=== PATIENT | male | born 2000 | race Two or more races ===

== ENCOUNTER 2020-02-29 14:17 | Emergency (ER) | payer MEDICAID, OTHER ==
[~2020-02-29] VITALS: Ht 188 cm; Wt 90.7 kg
[2020-02-29] MEDS ORDERED: ACETAMINOPHEN 325 MG TAB PO ONE ×2 (14:28→14:30)
[2020-02-29 15:47] VITALS: BP 131/86
== END 2020-02-29 16:22 | disposition home or self-care (01) ==
LOC: ER 14:17
DX: S61.112A Laceration without foreign body of left thumb with damage to nail, initial encounter (principal); W23.0XXA Caught, crushed, jammed, or pinched between moving objects, initial encounter; Y93.89 Activity, other specified; Y92.89 Other specified places as the place of occurrence of the external cause; Y99.8 Other external cause status
CPT/HCPCS: 12002; 73120